=== PATIENT | female | born 1995 ===

== ENCOUNTER 2016-10-13 07:03 | Emergency (ER) | payer BC ==
[2016-10-13 07:13] VITALS: BP 131/76
--- NOTE | 2016-10-13 07:22 | UC ---
Ear Complaint HPI - HPI Summary HPI Summary: right side ear pain x 1 day + sinus pain and pressure x 3 day + nasal congestion, cough, no fever, no chills - History of Current Complaint Chief Complaint: UCRespiratory Stated Complaint: SINUS COMPLIANT Time Seen by Provider: 10/13/16 07:15 Hx Obtained From: Patient Hx Last Menstrual Period: now ?: No Onset/Duration: Gradual Onset, Lasting Days - 1, Still Present Severity Initially: Moderate Severity Currently: Moderate Aggravating Factors: Nothing Alleviating Factors: Nothing Associated Signs/Symptoms: Positive: URI Symptoms. Negative: Discharge, Hearing Loss, Foreign Body Sensation, Trauma to Ear, Swelling @ - Allergies/Home Medications Allergies/Adverse Reactions: Allergies Allergy/AdvReac Type Severity Reaction Status Date / Time No Known Allergies Allergy Verified 10/13/16 07:12 Home Medications: Home Medications Day Nigh Sinus Pressure [facility] 2 tab PO ONCE PRN 10/13/16 [History] guaiFENesin ER TAB [Mucinex*] 600 mg PO BID PRN 10/13/16 [History Confirmed 07/31] PMH/Surg Hx/FS Hx/Imm Hx Previously Healthy: Yes - Surgical History Surgical History: Yes Surgery Procedure, Year, and Place: Deviated Septum. [place] teeth removed - Family History Known Family History: Negative: Diabetes - Social History Alcohol Use: Occasionally Substance Use Type: None Smoking Status (MU): Never Smoked Tobacco Review of Systems Constitutional: Negative Skin: Negative Eyes: Negative ENT: Ear Ache, Nasal Discharge Respiratory: Cough Cardiovascular: Negative Gastrointestinal: Negative All Other Systems Reviewed And Are Negative: Yes Physical Exam Triage Information Reviewed: Yes Appearance: Well-Appearing, No Pain Distress, Well-Nourished Vital Signs: Initial Vital Signs Temp 98.7 F 10/13/16 07:06 Pulse 82 10/13/16 07:06 Resp 18 10/13/16 07:06 BP 131/76 10/13/16 07:06 Pulse Ox 100 10/13/16 07:06 Vital Signs Reviewed: Yes Eyes: Positive: Conjunctiva Clear ENT: Positive: Normal ENT inspection, Hearing grossly normal, Pharynx normal, Nasal congestion, Nasal drainage, TM dull - right, TM red - right Neck exam: Normal Neck: Positive: Supple, Nontender, No Lymphadenopathy Respiratory: Positive: Chest non-tender, Lungs clear, Normal breath sounds Cardiovascular: Positive: RRR, No Murmur, Pulses Normal Ear Complaint Course/Dx - Differential Dx/Diagnosis Provider Diagnoses: otitis media right ear Discharge - Discharge Plan Condition: Stable Disposition: HOME Prescriptions: Amoxicillin/Clavulanate TAB* [Augmentin TAB 875*] 875 mg PO BID #20 tab Patient Education Materials: Otitis Media (ED) Referrals: Non Staff,Doctor [Primary Care Provider] - If Needed
== END 2016-10-13 07:36 | disposition home or self-care (01) ==
LOC: UCCORT 07:03
DX: H66.91 Otitis media, unspecified, right ear (principal)
CPT/HCPCS: 99212; G0463